=== PATIENT | female | born 1960 | race Caucasian/White ===

== ENCOUNTER 2019-06-30 11:05 | Emergency (ER) | payer MEDICAID ==
[2019-06-30] MEDS ORDERED: Ketorolac 60 MG/2 ML SDV IM ONE (11:42)
--- NOTE | 2019-06-30 11:43 | EDM.PDOC ---
ED HPI GENERAL MEDICAL PROBLEM - General Chief Complaint: General Stated Complaint: FELL AND HURT RIBS Time Seen by Provider: 06/30/19 11:40 Source of Information: Reports: Patient, RN Notes Reviewed History Limitations: Reports: No Limitations - History of Present Illness INITIAL COMMENTS - FREE TEXT/NARRATIVE: 59-year-old female fell yesterday hitting the right side of her chest she now has significant pain difficult for her to breathe Right Chest Pain Score (Numeric/FACES): 10 - Related Data Allergies Allergy/AdvReac Type Severity Reaction Status Date / Time hydrocodone Allergy Facial Verified 06/30/19 11:36 Swelling Home Meds: Home Meds Carvedilol 6.25 mg PO BID 06/30/19 [History] Cholecalciferol (Vitamin D3) [Vitamin D3] 3,000 unit PO DAILY 06/30/19 [History] Citalopram [Citalopram HBr] 5 mg PO DAILY 06/30/19 [History] Folic Acid 1 mg PO DAILY 06/30/19 [History] Levothyroxine [Synthroid] 50 mcg PO DAILY 06/30/19 [History] Multivitamin [Multiple Vitamins] 1 tab PO DAILY 06/30/19 [History] Past Medical History Cardiovascular History: Reports: Hypertension Endocrine/Metabolic History: Reports: Hypothyroidism - Infectious Disease History Infectious Disease History: Reports: Chicken Pox - Past Surgical History Cardiovascular Surgical History: Reports: Carotid Endarterectomy Social & Family History - Tobacco Use Smoking Status *Q: Never Smoker - Caffeine Use Caffeine Use: Reports: Coffee - Recreational Drug Use Recreational Drug Use: No ED ROS GENERAL - Review of Systems Review Of Systems: See Below Constitutional: Reports: No Symptoms Respiratory: Reports: Shortness of Breath Cardiovascular: Reports: Chest Pain ED EXAM, GENERAL - Physical Exam Exam: See Below Exam Limited By: No Limitations General Appearance: Alert, WD/WN, No Apparent Distress Respiratory/Chest: No Respiratory Distress, Lungs Clear, Normal Breath Sounds, No Accessory Muscle Use, Other (tenderness over right side) Cardiovascular: Regular Rate, Rhythm, No Murmur Course - Vital Signs Last Recorded V/S: Last Vital Signs Temp 97.2 F 06/30/19 11:31 Pulse 67 06/30/19 11:31 Resp 18 06/30/19 11:31 BP 183/73 H 06/30/19 11:31 Pulse Ox 97 06/30/19 11:31 - Orders/Labs/Meds Orders: Active Orders 24 hr Category Date Time Status Chest 2V [CR] Urgent Exams 06/30/19 11:42 Ordered Meds: Medications Discontinued Medications Generic Name Dose Route Start Last Admin Trade Name Benny PRN Reason Stop Dose Admin Ketorolac Tromethamine 60 mg 06/30/19 11:42 06/30/19 12:09 Toradol IM 06/30/19 11:43 60 mg ONETIME ONE Administration Departure - Departure Time of Disposition: 14:15 Disposition: Home, Self-Care 01 Condition: Fair Clinical Impression: Chest wall contusion Qualifiers: Encounter type: initial encounter Laterality: right Qualified Code(s): S20.211A - Contusion of right front wall of thorax, initial encounter - Discharge Information Referrals: Thomas Sarmiento MD [Primary Care Provider] - Forms: ED Department Discharge Additional Instructions: Use Tylenol or Motrin as needed for pain control, Please followup with your primary care provider in 3-5 days if not better, please call return to the emergency department with worsening of symptoms. - My Orders Last 24 Hours: My Active Orders 06/30/19 11:42 Chest 2V [CR] Urgent - Assessment/Plan Last 24 Hours: My Active Orders 06/30/19 11:42 Chest 2V [CR] Urgent Plan: Assessment Acuity = acute Site and laterality = chest wall contusion Etiology = secondary to a fall Manifestations = pain Location of injury = Home Lab values = x-ray reveals no fracture Plan Tylenol or Motrin as needed for pain control follow-up primary care 3-5 days if not better This note was dictated using [employer] voice recognition software please call with any questions on syntax or grammar.
--- NOTE | 2019-06-30 15:20 | CR ---
CHEST: 2 view CLINICAL HISTORY:Right-sided pain, fall COMPARISON:None FINDINGS: The heart size, pulmonary vascular and hilar structures are normal. No infiltrate effusion or pneumothorax is seen. There are atherosclerotic changes in the aorta. IMPRESSION: No acute cardiopulmonary process.
== END 2019-06-30 14:22 | disposition home or self-care (01) ==
LOC: JP.ED 11:05
DX: S20.211A Contusion of right front wall of thorax, initial encounter (principal); I10 Essential (primary) hypertension; E03.9 Hypothyroidism, unspecified; Z79.899 Other long term (current) drug therapy; Z88.5 Allergy status to narcotic agent; W19.XXXA Unspecified fall, initial encounter; W22.8XXA Striking against or struck by other objects, initial encounter
CPT/HCPCS: 71046; 96372; 99284; J1885

== ENCOUNTER 2024-10-26 09:25 | Inpatient (IN) | payer MEDICARE, MEDICAID ==
[2024-10-26 10:37] LABS: HEMOGLOBIN 11.9 g/dL (11.2-15.5); MEAN CORPUSCULAR HEMOGLOBIN 36.4 pg (31.6-35.5); RED BLOOD CELL COUNT 3.27 M/uL (3.77-5.24); WHITE BLOOD CELL COUNT,WBC 9.3 K/uL (3.2-11.0)
[2024-10-26] MEDS: Lactated Ringers 1,000 ML IV SCH (10:43)
[2024-10-26] MEDS: Nozin Nasal Sanitizer NASBOTH SCH (10:44)
[2024-10-26] MEDS ORDERED: Midazolam 1 MG/ML 2 ML SDV ONE (10:47)
[2024-10-26] MEDS ORDERED: Propofol 200 MG/20 ML SDV ONE ×4 (10:47→14:42)
[2024-10-26] MEDS ORDERED: fentaNYL 100 MCG/2 ML SDV ONE ×2 (10:47→14:14)
[2024-10-26 10:52] LABS: CALCIUM 8.8 mg/dL (8.5-10.1); CREATININE 0.9 mg/dL (0.6-1.0); EST CRCL DRUG DOSING (CG) 44.17 mL/min; POTASSIUM,K 3.6 mmol/L (3.6-5.2)
[2024-10-26 10:53] LABS: ANION GAP 12.6 mmol/L (5.0-14.0)
[2024-10-26] MEDS ORDERED: Lactated Ringers 1,000 ML ONE (13:54)
[2024-10-26] MEDS: Tranexamic Acid 880 MG in Sodium Chloride 0.9% 50 ML IV ONE (13:55)
[2024-10-26] MEDS: ceFAZolin 2 GM in Premix Bag 1 BAG IV ONE (14:00)
[2024-10-26] MEDS ORDERED: Sodium Chloride 0.9% 10 ML ONE (14:05)
[2024-10-26] MEDS ORDERED: ePHEDrine 50 MG/ML SDV ONE (14:05)
[2024-10-26] MEDS: Bupivacaine 0.5% 50 ML MDV ONE (14:10)
[2024-10-26] MEDS ORDERED: Magnesium Hydroxide 400 MG/5 ML Susp 30 ML Cup PO PRN (15:26)
[2024-10-26] MEDS ORDERED: ceFAZolin 1 GM in Sodium Chloride 0.9% 50 ML IV SCH (15:30)
[2024-10-26] MEDS: Acetaminophen 325 MG Tab PO SCH (16:28)
[2024-10-26] MEDS: Ketorolac 15 MG/ML SDV IVPUSH SCH (16:28)
[2024-10-26] MEDS: Sodium Chloride 0.9% 1,000 ML IV SCH (16:28)
[2024-10-26] MEDS: oxyCODONE 5 MG Tab PO PRN (16:36)
[2024-10-26] MEDS: Morphine 2 MG/ML SYRINGE IVPUSH PRN (17:34)
[2024-10-26] MEDS: traMADol 50 MG Tab PO PRN (18:01)
[2024-10-26] MEDS: Ondansetron 4 MG/2 ML SDV IVPUSH PRN (18:31)
[2024-10-26] MEDS: Carvedilol 3.125 MG Tab PO SCH (20:29)
[2024-10-26] MEDS: Aspirin 325 MG Tab.EC PO SCH (20:31)
[2024-10-26] MEDS: Docusate Sodium 100 MG Cap PO SCH (20:31)
[2024-10-26] MEDS ORDERED: Non-Formulary Medication 1 Each (Budesonide [Pulmicort Flexhaler] 180 MCG Inhaler) IH SCH (21:00)
[2024-10-26] MEDS ORDERED: Non-Formulary Medication 1 Each (Carvedilol [Carvedilol] 6.25 MG Tablet) PO SCH (21:00)
[2024-10-26] MEDS ORDERED: Nozin Nasal Sanitizer NASBOTH SCH (21:00)
[2024-10-27] MEDS: ceFAZolin 1 GM in Premix Bag 1 BAG IV SCH (02:01)
[2024-10-27] MEDS: oxyCODONE 5 MG Tab PO PRN (06:12)
[2024-10-27] MEDS ORDERED: Non-Formulary Medication 1 Each (Levothyroxine Sodium [Levothyroxine Sodium] 137 MCG Table PO SCH (07:30)
[2024-10-27] MEDS ORDERED: Non-Formulary Medication 1 Each (Albuterol Sulfate [Proair Respiclick] 90 MCG Aer.Pow.Ba) IH SCH (09:00)
[2024-10-27] MEDS ORDERED: Citalopram 20 MG Tab PO SCH (09:00)
[2024-10-27] MEDS: Citalopram 10 MG Tab PO SCH (09:11)
[2024-10-27] MEDS: Lisinopril 10 MG Tab PO SCH (09:11)
[2024-10-27] MEDS: Metoclopramide 10 MG Tab PO PRN (12:48)
== END 2024-10-30 11:07 | disposition home or self-care (01) | DRG 470 ==
LOC: JP.SDS 09:25 → JP.MS 15:26 → JP.SDS 10-27 12:52 → JP.MS 10-27 13:15
PROVIDERS: ADMIT Specialist; ATTEND Specialist
PROC: 0SRC069 Replacement of Right Knee Joint with Oxidized Zirconium on Polyethylene Synthetic Substitute, Cemented, Open Approach (ICD-10-PCS; principal; 2024-10-26 13:30)
DX: M17.11 Unilateral primary osteoarthritis, right knee (principal); J44.9 Chronic obstructive pulmonary disease, unspecified; M81.0 Age-related osteoporosis without current pathological fracture; I11.0 Hypertensive heart disease with heart failure; I50.9 Heart failure, unspecified; E66.01 Morbid (severe) obesity due to excess calories; Z68.38 Body mass index [BMI] 38.0-38.9, adult
CPT/HCPCS: 01400-QZ; 20985; 27447; 36415; 73560-26-RT; 73560-RT; 80048; 85027; 97110-GP; 97161-GP; 97165-GO; 97530-GP; A9270-GY; C1713; C1776; J0665; J0689; J0690; J1885; J2250; J2270; J2405; J2704; J3010; J3490; J7030; J7120